=== PATIENT | female | born 1975 | race Two or more races ===

== ENCOUNTER 2022-01-21 10:15 | Emergency (ER) | payer MEDICARE, MEDICAID ==
[~2022-01-21] VITALS: Ht 165.1 cm; Wt 87.9 kg
[2022-01-21 13:03] VITALS: BP 125/89
== END 2022-01-21 13:10 | disposition home or self-care (01) ==
LOC: ER 10:19
DX: S60.211A Contusion of right wrist, initial encounter (principal); S90.01XA Contusion of right ankle, initial encounter; W22.03XA Walked into furniture, initial encounter; Y93.89 Activity, other specified; Y92.89 Other specified places as the place of occurrence of the external cause; Y99.8 Other external cause status
CPT/HCPCS: 73100; 73600